=== PATIENT | female | born 2000 ===

== ENCOUNTER 2020-10-26 13:44 | Outpatient (CLI) | payer OTHER | END 2020-10-26 16:08 | disposition home or self-care (01) | LOC: PRENATAL 13:44 | PROVIDERS: ATTEND Obstetrics & Gynecology Maternal & Fetal Medicine | DX: O35.0XX1 Maternal care for (suspected) central nervous system malformation in fetus, fetus 1 (principal); O35.3XX1 Maternal care for (suspected) damage to fetus from viral disease in mother, fetus 1; O98.512 Other viral diseases complicating pregnancy, second trimester; O28.1 Abnormal biochemical finding on antenatal screening of mother; O41.02X1 Oligohydramnios, second trimester, fetus 1; O44.12 Complete placenta previa with hemorrhage, second trimester; Z36.89 Encounter for other specified antenatal screening; Z3A.24 24 weeks gestation of pregnancy ==

== ENCOUNTER 2020-12-22 13:07 | Outpatient (CLI) | payer OTHER | END 2020-12-22 14:33 | disposition home or self-care (01) | LOC: PRENATAL 13:07 | PROVIDERS: ATTEND Obstetrics & Gynecology Maternal & Fetal Medicine | DX: O35.0XX1 Maternal care for (suspected) central nervous system malformation in fetus, fetus 1 (principal); O26.843 Uterine size-date discrepancy, third trimester; O36.8131 Decreased fetal movements, third trimester, fetus 1; O44.03 Complete placenta previa NOS or without hemorrhage, third trimester; Z36.89 Encounter for other specified antenatal screening; Z3A.32 32 weeks gestation of pregnancy ==